=== PATIENT | male | born 1950 | race Caucasian/White ===

== ENCOUNTER 2017-10-06 02:13 | Observation (INO) | payer OTHER, MEDICARE ==
--- NOTE | 2017-10-06 02:16 | EDPHY ---
H & P HPI/ROS: HPI CHIEF COMPLAINT: Worsening cough, shortness of breath HISTORY OF PRESENT ILLNESS: This patient is a very pleasant 67-year-old male, is visiting son here from [place] he has been in [place] since September 29, presents emergency room with 1 week of upper respiratory tract infection symptoms. However he states over the past 2 days his cough has gotten worse with productive sputum of yellowin/green in nature. He reports worsening shortness of breath. He additionally reports wheezing. He denies any chest pain. Denies chest pressure. Denies having a fever. Does state that his sputum color has changed And become more productive. Past Medical History: Coronary disease with stents, hypertension, hyperlipidemia, obesity, diabetes, CKD Stage 4. Past Surgical History: CABG 5 vessel Social History: Denies daily use drugs alcohol tobacco products. Resides in [place]. Family History: Noncontributory ROS REVIEW OF SYSTEMS: A comprehensive 10 point review of systems is otherwise negative aside from elements mentioned in the history of present illness. Exam Constitutional appears well nontoxic triage nursing summary reviewed, vital signs reviewed, awake/alert. Eyes normal conjunctivae and sclera, EOMI, PERRLA. HENT normal inspection, atraumatic, moist mucus membranes, no epistaxis, neck supple/ no meningismus, no raccoon eyes. Respiratory decreased breath sounds bilaterally with faint wheezing, bronchitic sounding cough on exam. Cardiovascular rate normal, regular rhythm, no murmur, no edema, distal pulses normal. Gastrointestinal soft, non-tender, no rebound, no guarding, normal bowel sounds, no distension, no pulsatile mass. Genitourinary no CVA tenderness. Musculoskeletal no midline vertebral tenderness, full range of motion, no calf swelling, no tenderness of extremities, no meningismus, good pulses, neurovascularly intact. Skin pink, warm, & dry, no rash, skin atraumatic. Neurologic awake, alert and oriented x 3, AAOx3, moves all 4 extremities equally, motor intact, sensory intact, CN II-XII intact, normal cerebellar, normal vision, normal speech. Psychiatric normal mood/affect. Heme/Lymph/Immune no lymphadenopathy. Differential Diagnosis: Includes but is not limited to in a particular order viral syndrome, upper respiratory tract infection, pneumonia, pneumothorax, CHF , ACS Medical Decision Making: Plan for this patient full media monitor, obtain EKG , two view chest x-ray, DuoNeb breathing treatment to see if this improves his respiratory status, check basic blood work, troponin. I think presentation of acute coronary syndrome is unlikely given his constellation of symptoms with bronchitis, upper respiratory tract infection symptoms, cough with productive sputum. Re-evaluation: EKG interpretation by me on record in VTM system. Impression time of EKG 2:29 a.m., sinus rhythm rate of 74 right bundle-branch block present. Left anterior fascicular block present. Q-waves noted inferior leads. T-wave abnormalities lead V1 V2 V3. EKG is performed without chest pain. No old EKGs to compare this to. ED x-ray chest two view reviewed. Cardiomegaly present. I do not Appreciate focal pneumonia. I do not appreciate overt failure. 0323: I reviewed this patient's blood work patient reports to me is CKD stage 4 discrete usually runs 4.2. His creatinine is 5.4 and a BUN of 90 today. Clinically on exam I do feel that he is dry. Dehydrated. He is receiving IV fluid bolus 1 L. He has an elevated troponin most likely due to underlying kidney disease, he does not have any chest pain. On exam he does have intermittent wheezing with bronchitic sounding cough. I have sent a respiratory pathogen panel. He does not have a fever here. I do not appreciate pneumonia on his x-ray. Given his comorbid conditions, ongoing bronchitis and coughing here in emergency room and elevated creatinine BUN point most likely pre renal patient should be admitted to the hospital for further observation, pulmonary care, and hydration. Spoke with Dr. Cortez who agrees to admit patient. Final diagnosis shortness of breath, bronchitis, worsening kidney disease, upper respiratory tract infection Source: Patient Constitutional: Initial Vital Signs Temperature (C) 37.1 C 10/06/17 02:21 Heart Rate 76 10/06/17 02:21 Respiratory Rate 20 10/06/17 02:21 Blood Pressure 131/81 H 10/06/17 02:21 O2 Delivery Mode Room Air Allergies/Adverse Reactions: No Known Allergies Allergy (Unverified 10/06/17 02:32) Home Medications: Medication Instructions Recorded Aspirin [Aspirin 325 mg (*)] 325 mg PO DAILY 10/06/17 Carboxymethylcellulose 1% [Refresh 1 drop EACHEYE DAILY PRN 10/06/17 Celluvisc (*)] Carvedilol [Coreg (*)] 25 mg PO BID 10/06/17 Clopidogrel Bisulfate [Plavix (*)] 75 mg PO DAILY 10/06/17 Furosemide [Lasix 80 MG (*)] 80 mg PO BID 10/06/17 Gabapentin [Neurontin 300 MG (*)] 300 mg PO HS 10/06/17 Insulin Aspart [novoLOG] 14 units SQ TIDMEAL 10/06/17 Insulin Glargine [Lantus 100 30 units SC HS 10/06/17 UNITS/ML (*)] Isosorbide Mononitrate [Isosorbide 60 mg PO HS 10/06/17 Mononitrate ER] Lovastatin 40 mg PO HS 10/06/17 Metolazone [Zaroxolyn 5MG (*)] 5 mg PO HS 10/06/17 hydrALAZINE [Apresoline 25 mg (RX)] 25 mg PO BID PRN 10/06/17 Medical Decision Making - Data Points Laboratory Results: Laboratory Results 10/06/17 02:17 10/06/17 02:17 Microbiology Results: MICROBIOLOGY 10/06/17 03:04 Nasal, Sinus - Aspirate Respiratory Panel (PCR) - Final No Organism Detected Medications Given: Aspirin (Aspirin) 325 mg PO DAILY [facility] Stop: 04/04/18 08:59 Last Admin: 10/06/17 09:21 Dose: 325 mg Carvedilol (Coreg) 25 mg PO BID [facility] Stop: 04/04/18 08:59 Last Admin: 10/06/17 21:39 Dose: 25 mg Clopidogrel Bisulfate (Plavix) 75 mg PO DAILY [facility] Stop: 04/04/18 08:59 Last Admin: 10/06/17 09:21 Dose: 75 mg Gabapentin (Neurontin) 300 mg PO HS [facility] Stop: 04/04/18 20:59 Last Admin: 10/06/17 21:39 Dose: 300 mg Heparin Sodium (Porcine) (Heparin Sc Injection) 5,000 unit SC Q8 [facility] Stop: 04/04/18 05:59 Last Admin: 10/06/17 21:40 Dose: 5,000 unit Insulin Glargine (Lantus Syringe) 30 units SC HS [facility] Stop: 04/04/18 20:59 Last Admin: 10/06/17 21:40 Dose: 30 units Insulin Glargine (Lantus Syringe) 30 units SC HS [facility] Stop: 04/04/18 20:59 Last Admin: 10/06/17 21:44 Dose: Not Given Insulin [facility]) [facility]: 04/04/18 11:59 Last Admin: 10/06/17 18:16 Dose: 14 units Isosorbide Mononitrate (Imdur) 60 mg PO [facility] Stop: 04/04/18 20:59 Last Admin: 10/06/17 21:39 Dose: 60 mg Pravastatin Sodium (Pravachol) 40 mg PO [facility] Stop: 04/04/18 20:59 Last Admin: 10/06/17 21:40 Dose: 40 mg Discontinued Medications Albuterol/Ipratropium (Duoneb) 3 ml IH EDNOW ONE Stop: 10/06/17 02:23 Last Admin: 10/06/17 02:47 Dose: 3 ml Sodium Chloride (Ns) 1,000 mls @ 0 mls/hr IV ONCE ONE PRN Reason: Wide Open Stop: 10/06/17 02:23 Last Admin: 10/06/17 02:44 Dose: 1,000 mls Insulin Human Lispro (Humalog Lispro) [address] [facility] PRN Reason: Protocol Stop: 04/04/18 07:59 Last Admin: 10/06/17 12:48 Dose: Not Given Isosorbide Mononitrate (Imdur) 60 mg PO [facility] Stop: 04/04/18 08:59 Last Admin: 10/06/17 10:30 Dose: Not Given Pravastatin Sodium (Pravachol) 40 mg PO [facility] Stop: 04/04/18 08:59 Last Admin: 10/06/17 10:30 Dose: Not Given Departure - Departure Disposition: [facility] Acute Clinical Impression: Dehydration Acute bronchitis Qualifiers: Bronchitis organism: unspecified organism Qualified Code(s): J20.9 - Acute bronchitis, unspecified CKD (chronic kidney disease) Qualifiers: Chronic kidney disease stage: unspecified stage Qualified Code(s): N18.9 - Chronic kidney disease, unspecified Condition: Fair
[2017-10-06] MEDS ORDERED: NS 1,000 ML IV ONE (02:22)
[2017-10-06] MEDS ORDERED: IPRATROPIUM/ALBUTEROL 3 ML DEYVIAL IH ONE (02:22)
--- NOTE | 2017-10-06 02:30 | CPEKG ---
Heart Rate: 74 RR Interval: 811 P-R Interval: 188 QRSD Interval: 148 QT Interval: 468 QTC Interval: 520 P [place]: 56 QRS [place]: -74 T Wave [place]: 35 EKG Severity - ABNORMAL ECG - EKG Impression: SINUS RHYTHM EKG Impression: RBBB AND LAFB Electronically Signed By: Alden Briseno 07-Oct-2017 11:37:59
[2017-10-06 02:36] LABS: PLATELET COUNT 199 10^3/uL (150-400)
[2017-10-06] MEDS ORDERED: ONDANSETRON DISINTEGRATING 4 MG TAB PO PRN (03:22)
[2017-10-06] MEDS ORDERED: ONDANSETRON 4 MG/2 ML VIAL IVP PRN (03:22)
[2017-10-06] MEDS ORDERED: ALBUTEROL 3 ML DEYVIAL IH PRN (03:22)
[2017-10-06] MEDS ORDERED: ACETAMINOPHEN 325 MG TAB PO PRN (03:22)
--- NOTE | 2017-10-06 03:45 | PDGENHP ---
History and Physical - Chief Complaint Cough - History of Present Illness 67 yo M w/ CKD Stage IV, CAD s/p CABG, IDDM, and obesity presents with cough. Patient lives in [place] and has been visiting family in [place] for a few days. Over this period of time he has developed a cough productive of green/yellow sputum. He did have positive sick contacts about 10 days ago in [place]. He also feels he has not been drinking enough fluids. On arrival in the ED he was noted to have a mild wheeze, this improved with a nebulizer treatment. Laboratory work -up showed elevated creatinine (he reports serum creatinine baseline of ~4) and indeterminate troponin so he was admitted for observation. History Information - Allergies/Home Medication List Allergies/Adverse Reactions: No Known Allergies Allergy (Unverified 10/06/17 02:32) Home Medications: Aspirin [Aspirin 325 mg (*)] 325 mg PO DAILY 10/06/17 [Last Taken Unknown] Carvedilol [Coreg (*)] 25 mg PO BIDMEAL 10/06/17 [Last Taken Unknown] Clopidogrel Bisulfate [Plavix] 75 mg PO 10/06/17 [Last Taken Unknown] Furosemide [Lasix 80 MG (*)] 80 mg PO BID 10/06/17 [Last Taken Unknown] Gabapentin [Gralise] 300 mg PO 10/06/17 [Last Taken Unknown] Insulin Aspart [novoLOG] 10/06/17 [Last Taken Unknown] Insulin Glargine [Lantus 100 UNITS/ML (*)] 30 units SC HS 10/06/17 [Last Taken Unknown] Isosorbide Mononitrate [Isosorbide Mononitrate ER] 300 mg PO 10/06/17 [Last Taken Unknown] Lovastatin [Altoprev] 40 mg PO DAILY 10/06/17 [Last Taken Unknown] carBAMazepine [Carbatrol] 100 mg PO BID 10/06/17 [Last Taken Unknown] hydrALAZINE [Apresoline 25 mg (RX)] 25 mg PO TID 10/06/17 [Last Taken Unknown] I have personally reviewed and updated: family history, medical history - Past Medical History coronary artery disease, diabetes type 2 Additional medical history: CKD stage IV - Surgical History Reports: coronary bypass surgery - Family History Positive for: cancer - Social History Smoking Status: Never smoked Review of Systems Review of Systems: ROS: 10pt was reviewed & negative except for what was stated in HPI & below Physical Exam Physical Exam: Temp Pulse Resp BP Pulse Ox 37.1 C 68 14 91/58 L 93 10/06/17 02:21 10/06/17 03:11 10/06/17 03:11 10/06/17 03:11 10/06/17 03:11 Constitutional: no apparent distress, not in pain, obese Eyes: PERRL, EOMI Ears, Nose, Mouth, Throat: moist mucous membranes, no oral mucosal ulcers Cardiovascular: regular rate and rhythym, no murmur, rub, or gallop Respiratory: no respiratory distress, clear to auscultation Gastrointestinal: normoactive bowel sounds, soft, non-tender abdomen Skin: warm, normal color Musculoskeletal: full muscle strength, no muscle tenderness Neurologic: AAOx3, CN II-XII Intact Psychiatric: interacting appropriately, not anxious Lab Data & Imaging Review 10/06/17 02:17 10/06/17 02:17 WBC 9.69 10^3/uL (3.80-9.50) H 10/06/17 02:17 RBC 4.19 10^6/uL (4.40-6.38) L 10/06/17 02:17 Hgb 13.4 g/dL (13.7-17.5) L 10/06/17 02:17 Hct 38.0 % (40.0-51.0) L 10/06/17 02:17 MCV 90.7 fL (81.5-99.8) 10/06/17 02:17 MCH 32.0 pg (27.9-34.1) 10/06/17 02:17 MCHC 35.3 g/dL (32.4-36.7) 10/06/17 02:17 RDW 12.9 % (11.5-15.2) 10/06/17 02:17 Plt Count 199 10^3/uL (150-400) 10/06/17 02:17 MPV 10.8 fL (8.7-11.7) 10/06/17 02:17 Neut % (Auto) 76.5 % (39.3-74.2) H 10/06/17 02:17 Lymph % (Auto) 10.0 % (15.0-45.0) L 10/06/17 02:17 Teller % (Auto) 11.1 % (4.5-13.0) 10/06/17 02:17 Eos % (Auto) 1.5 % (0.6-7.6) 10/06/17 02:17 Baso % (Auto) 0.6 % (0.3-1.7) 10/06/17 02:17 Nucleat RBC Rel Count 0.0 % (0.0-0.2) 10/06/17 02:17 Absolute Neuts (auto) 7.40 10^3/uL (1.70-6.50) H 10/06/17 02:17 Absolute Lymphs (auto) 0.97 10^3/uL (1.00-3.00) L 10/06/17 02:17 Absolute Monos (auto) 1.08 10^3/uL (0.30-0.80) H 10/06/17 02:17 Absolute Eos (auto) 0.15 10^3/uL (0.03-0.40) 10/06/17 02:17 Absolute Basos (auto) 0.06 10^3/uL (0.02-0.10) 10/06/17 02:17 Absolute Nucleated RBC 0.00 10^3/uL (0-0.01) 10/06/17 02:17 Immature Gran % 0.3 % (0.0-1.1) 10/06/17 02:17 Immature Gran # 0.03 10^3/uL (0.00-0.10) 10/06/17 02:17 Sodium 138 mEq/L (134-144) 10/06/17 02:17 Potassium 3.8 mEq/L (3.5-5.2) 10/06/17 02:17 Chloride 96 mEq/L (97-110) L 10/06/17 02:17 Carbon Dioxide 24 mEq/l (22-31) 10/06/17 02:17 Anion Gap 18 mEq/L (8-16) H 10/06/17 02:17 BUN 90 mg/dL (7-23) H 10/06/17 02:17 Creatinine 5.4 mg/dL (0.7-1.3) H 10/06/17 02:17 Estimated GFR 11 10/06/17 02:17 Glucose 314 mg/dL (70-100) H 10/06/17 02:17 Calcium 8.6 mg/dL (8.5-10.4) 10/06/17 02:17 Magnesium 2.5 mg/dL (1.6-2.3) H 10/06/17 02:17 Total Bilirubin 0.5 mg/dL (0.1-1.4) 10/06/17 02:17 Conjugated Bilirubin 0.4 mg/dL (0.0-0.5) 10/06/17 02:17 Unconjugated Bilirubin 0.1 mg/dL (0.0-1.1) 10/06/17 02:17 AST 18 IU/L (17-59) 10/06/17 02:17 ALT 31 IU/L (21-72) 10/06/17 02:17 Alkaline Phosphatase 62 IU/L (38-126) 10/06/17 02:17 Troponin I 0.048 ng/mL (0.000-0.034) H 10/06/17 02:17 NT-Pro-B Natriuret Pep 1090 pg/mL (0-125) H 10/06/17 02:17 Total Protein 6.8 g/dL (6.3-8.2) 10/06/17 02:17 Albumin 3.9 g/dL (3.5-5.0) 10/06/17 02:17 Visualized and Interpreted EKG results: Yes EKG Interpretation: Positive for: normal sinsus rhythm, other (RBBB and LAFB) Assessment & Plan Assessment: 67 yo M w/ CKD Stage IV, CAD s/p CABG, and IDDM presents with likely viral illness and found to have ELFEGO and indeterminate troponin. Plan: 1. Cough, fatigue - Likely viral illness noting afebrile with WBC of only 9 and no clear infiltrate on CXR. Noted to have mild wheeze in the ED, this improved with nebulizer treatment. - S/p 1 L NS in ED, will hold off on further IVF noting low GFR; encourage PO fluids - Respiratory PCR panel ordered 2. ELFEGO on CKD Stage IV - Reports baseline serum creatinine of ~4; 5.4 on admission here. HPI consistent with dehydration. Takes furosemide 80 mg PO BID, would hold this for now. - Recheck BMP after IVF 3. Indeterminate troponin - Very mild elevation (.04) in the setting of advance CKD; no chest pain. Most likely represents some demand ischemia in setting of viral illness exacerbated by CKD. - Trend enzymes, monitor on telemetry 4. CAD s/p CABG - On DAPT, statin, and nitrate as outpatient. 5. IDDM - Takes insulin glargine 30 u qHS + SSI; at home. Will continue here. Diet - Renal Code - Full Ppx - SQH Dispo - Admit to PCU for observation
[2017-10-06] MEDS ORDERED: PARAMETERS MISC PRN (04:30)
[2017-10-06] MEDS ORDERED: D50W 25 GM/50 ML VIAL IVP PRN (04:30)
[2017-10-06] MEDS: HEPARIN 5,000 UNIT/0.5 ML SYR SC SCH ×3 (04:40→21:40)
[2017-10-06] MEDS ORDERED: CARBOXYMETHYLCELLULOSE 1% 0.4 ML DROPERETTE EACHEYE PRN (08:47)
[2017-10-06] MEDS ORDERED: hydrALAZINE 25 MG TAB PO PRN (08:47)
[2017-10-06] MEDS ORDERED: ISOSORBIDE MONONITRATE 30 MG TAB.SR PO SCH ×2 (09:00→21:00)
[2017-10-06] MEDS ORDERED: PRAVASTATIN SODIUM 40 MG TAB PO SCH ×2 (09:00→21:00)
[2017-10-06] MEDS: ASPIRIN 325 MG TAB PO SCH (09:21)
[2017-10-06] MEDS: CLOPIDOGREL BISULFATE 75 MG TAB PO SCH (09:21)
[2017-10-06] MEDS: CARVEDILOL 25 MG TAB PO SCH ×2 (09:22→21:39)
[2017-10-06] MEDS: INSULIN LISPRO 100 UNIT/ML SC SCH ×5 (09:24→18:16)
[2017-10-06] MEDS ORDERED: BENZONATATE 100 MG CAP PO PRN (12:59)
--- NOTE | 2017-10-06 17:12 | HOSPPROG ---
Hospitalist Progress Note Assessment/Plan: HOSPITALIST AFTERNOON ROUNDS ON ADMISSION DAY The patient feels notably better here so far. He is eating and drinking well, no shortness of breath, no chest pain no fever symptoms. Still with a little bit of cough. Strength a bit better Vital signs have remained stable with no fever so far On exam he appears relaxed respirations not labored lungs diminished but clear No edema Skin warm dry of good color Will continue observe here overnight. If he continues to improve well may be able to go home tomorrow. Will need to recheck renal function. He appears to be drinking fluids well enough to stay hydrated orally. Given the degree of chronic renal failure of his renal function is not improving may need to watch him further here in the hospital and consider nephrology consultation Objective: Vital Signs Temp Pulse Resp BP Pulse Ox 36.6 C 75 18 115/71 99 10/06/17 16:00 10/06/17 16:00 10/06/17 16:00 10/06/17 16:00 10/06/17 16:00 Laboratory Results 10/06/17 08:25 10/05/17 10/06/17 10/07/17 06:59 06:59 06:59 Intake Total 1300 Balance 1300 ICD10 Worksheet Patient Problems: Problems Problem Status Onset Acute bronchitis Acute CKD (chronic kidney disease) Acute Dehydration Acute
[2017-10-06] MEDS ORDERED: INSULIN GLARGINE 100 UNITS/ML SYRINGE SC SCH ×2 (21:00)
[2017-10-06] MEDS ORDERED: GABAPENTIN 300 MG CAP PO SCH (21:00)
[2017-10-06] MEDS ORDERED: METOLAZONE 5 MG TAB PO SCH (21:00)
[2017-10-07] MEDS: HEPARIN 5,000 UNIT/0.5 ML SYR SC SCH (05:43)
[2017-10-07 07:33] VITALS: RESP 18
[2017-10-07] MEDS: CARVEDILOL 25 MG TAB PO SCH (08:56)
[2017-10-07] MEDS: INSULIN LISPRO 100 UNIT/ML SC SCH ×2 (08:56→12:29)
[2017-10-07] MEDS: ASPIRIN 325 MG TAB PO SCH (08:57)
[2017-10-07] MEDS: CLOPIDOGREL BISULFATE 75 MG TAB PO SCH (08:57)
--- NOTE | 2017-10-07 09:44 | ASMTCASEMG ---
Living Arrangements What is your living Answers: With Spouse arrangement? Who do you live with? Type Of Residence What kind of residence do Answers: House you live in? Discharge Plan Comments Coordination Status Comments Notes: Pt is a 67 y/o man admitted for SOB and CKD 4. Pt is visiting from [place]. Anticipates that pt will d/c independent when medically stable. No therapies ordered at this time. CM available for changes. Plan: Independent Date Signed: 10/07/2017 09:44 AM Electronically Signed By:QUAN Bill
[2017-10-07 11:27] VITALS: BP 120/74; PULSE 66; TEMP 97.4; O2SAT 97
--- NOTE | 2017-10-07 15:20 | ASDISCHSUM ---
Discharge Information Plan Status:Home with No Needs Medically Cleared to Leave:10/06/2017 Discharge Date:10/07/2017 01:25 PM CM D/C Disposition: ADT D/C Disposition:Home, Routine, Self-Care Projected Discharge Date:10/07/2017 12:00 AM Transportation at D/C: Discharge Delay Reason: Follow-Up Date:10/07/2017 12:00 AM Discharge Slot: Final Diagnosis: Placement Information Patient Contact Information Contact Name:INESSA Relationship:Keith Address: Home Phone: City: [facility] Phone: [facility]/[employer] Code: Email: Financial Information Financial Class: Primary Plan Desc:MEDICARE OUTPATIENT Primary Plan Number:[id number] Secondary Plan Desc:[employer]/MDR SUPPLEMENT Secondary Plan Number:[id number] Assessment Information [facility] Initial CM Assessment Living Arrangements What is your living Answers: With Spouse arrangement? Who do you live with? Type Of Residence What kind of residence do Answers: House you live in? Discharge Plan Comments Coordination Status Comments Notes: Pt is a 67 y/o man admitted for SOB and CKD 4. Pt is visiting from [place]. Anticipates that pt will d/c independent when medically stable. No therapies ordered at this time. CM available for changes. Plan: Independent Date Signed: 10/07/2017 09:44 AM Electronically Signed By:QUAN Bill Intervention Information Intervention Type:*TIFFANIE-Signed Date of Service:10/07/2017 11:39 AM Patient Type:Observation Staff Member:Marion Mccallum Hours: Discipline: Severity: Comment:
--- NOTE | 2017-10-07 17:44 | PDDCSUM ---
Discharge Summary Discharge Summary: DISCHARGE DIAGNOSES: -acute viral respiratory infection with mild hypoxemia -acute on chronic renal failure -insulin-dependent diabetes with reasonable control here -minimal elevations of troponin here at this time with history of coronary disease but no evidence of acute ischemia or heart failure; felt to be a demand ischemia situation HOSPITAL COURSE SUMMARY: This patient with chronic renal disease and frequent exacerbations with other illnesses comes in at this time with acute viral respiratory illness, with very poor appetite not taking in fluids well. He was weak and not ambulating well upon admission. His baseline creatinine of 4.5 was elevated to 5.5. The patient was admitted the hospital and treated overnight with symptomatic measures and IV hydration. By today he is feeling much better, eating and drinking normally creatinine has decreased to 5.2, he is not short of breath, he is walking well in the hallways. His lungs are clear on examination any looks very comfortable. The patient did have troponin checked in the ER despite not really having any anginal symptoms and no signs of heart failure. He did not have any arrhythmia on cardiac monitoring, did not develop angina, did not develop heart failure. His troponin was felt to be a demand ischemia abnormality in the setting of severe renal failure and not an acute coronary syndrome. Further workup was not feel indicated PENDING TEST RESULTS: None MEDICATION CHANGES: None FOLLOW-UP PLAN: He was flying back home tomorrow and follow up with his primary care physician either tomorrow afternoon or the next morning
[2017-10-07] MEDS ORDERED: INSULIN GLARGINE 100 UNITS/ML SYRINGE SC SCH (21:00)
== END 2017-10-07 13:25 | disposition home or self-care (01) ==
LOC: F2W 04:04
PROVIDERS: ADMIT Student in an Organized Health Care Education/Training Program; ATTEND Student in an Organized Health Care Education/Training Program
PROC: 3E0337Z Introduction of Electrolytic and Water Balance Substance into Peripheral Vein, Percutaneous Approach (ICD-10-PCS; principal; 2017-10-06)
DX: J06.9 Acute upper respiratory infection, unspecified (principal); B34.9 Viral infection, unspecified; R09.02 Hypoxemia; N18.4 Chronic kidney disease, stage 4 (severe); N17.9 Acute kidney failure, unspecified; E86.0 Dehydration; E11.22 Type 2 diabetes mellitus with diabetic chronic kidney disease; I12.9 Hypertensive chronic kidney disease with stage 1 through stage 4 chronic kidney disease, or unspecified chronic kidney disease; R79.89 Other specified abnormal findings of blood chemistry; I25.10 Atherosclerotic heart disease of native coronary artery without angina pectoris; E78.5 Hyperlipidemia, unspecified; E66.9 Obesity, unspecified; Z68.37 Body mass index [BMI] 37.0-37.9, adult; Z79.4 Long term (current) use of insulin; Z95.5 Presence of coronary angioplasty implant and graft; Z95.1 Presence of aortocoronary bypass graft
CPT/HCPCS: 71020; 93005; 96360; 99285; G0378; J1815